=== PATIENT | female | born 1980 | race Caucasian/White ===

== ENCOUNTER 2017-12-13 23:15 | Emergency (ER) | payer OTHER, SELFPAY ==
[2017-12-13 23:18] VITALS: BP 132/71; PULSE 90; RESP 16; TEMP 36.5; O2SAT 100; BMI 36.8
--- NOTE | 2017-12-14 00:38 | DI.RAD.S_ITS ---
PROCEDURE: XR WRIST RT 2V INDICATIONS: cat bite TECHNIQUE: 2 views of the wrist were acquired. COMPARISON: None. FINDINGS: Bones: No fractures or dislocations. No suspicious bony lesions. Scaphoid view: Not requested Soft tissues: No suspicious soft tissue calcifications. A cluster of air lucencies is present in the soft tissues over the dorsal and lateral aspect of the carpus, compatible with penetrating lesions or air forming infection IMPRESSION: 1. Negative for fracture. 2. Radiolucencies over the dorsolateral aspect of the soft tissues compatible with penetrating lesions, possibility of air forming bacterial infection not excluded. Dictated by: Christ Doran M.D. on 12/14/2017 at 8:10 Approved by: Christ Doran M.D. on 12/14/2017 at 8:12
--- NOTE | 2017-12-14 00:41 | ED_ITS ---
HPI - Wound/Laceration General Chief Complaint: Wound/Laceration Stated Complaint: right wrist cat scratch Time Seen by Provider: 12/14/17 00:28 Source: patient Mode of arrival: ambulatory Limitations: no limitations History of Present Illness HPI narrative: Patient is a 37-year-old female who presents after a cat bite to her right wrist. It is a domesticated cat but a work CT. She thinks it has had all of its shots. He did wash it out with soap and water has. However she has significant swelling 10 cm of her right arm. No fever. The bite happened at about 2:00 p.m. this afternoon. Onset (ago): hour(s) Related Data Home Medications Medication Instructions Recorded Confirmed FLUTICASONE 50MCG JODEE INH- 1 spray INTRANASAL Q DAY #0 03/30/10 (FLUTICASONE PROPIONATE) [PROAIR] 1 - 2 puff BUC PRN #0 03/30/10 mometasone-formoterol [Dulera] 1 sneha INH BID #0 02/01/13 valacyclovir 500 mg PO Q DAY #0 02/01/13 magnesium oxide 1,200 mg #0 08/22/16 calcium carbonate 600 mg NG #0 02/18/17 Previous Rx's Medication Instructions Recorded amoxicillin-pot clavulanate 1 tab PO BID #14 tab 12/14/17 [Augmentin] Allergies Allergy/AdvReac Type Severity Reaction Status Date / Time FOOD PLANTS DOGS CATS Allergy Severe Uncoded 08/12/17 12:15 Review of Systems Review of Systems GENERAL: Denies chills, fatigue, malaise, fever, sweats, travel HEENT: Denies sinus pain, ear pain, sore throat, difficulty swallowing, neck pain RESPIRATORY: Denies dyspnea, cough, wheezing, hemoptysis, sputum. CARDIOVASCULAR: Denies chest pain, palpitations, orthopnea, edema GASTROINTESTINAL: Denies nausea, vomiting, abdominal pain, diarrhea, constipation, melena. : Denies dysuria, frequency, incontinence, hematuria, urinary retention, flank pain. MUSCULOSKELETAL: Denies weakness, joint pain, or bony pain SKIN: See HPI NEUROLOGIC: Denies weakness, dizziness, headache, numbness, change in speech, confusion PSYCHIATRIC: No concerning psychosocial issues. 12 point review of systems is negative except for those stated above and HPI PFSH Medical History Healthy adult (Acute) Surgical History Status post appendectomy Status post tonsillectomy and adenoidectomy Social History Smoking Status: Current every day smoker Exam Initial Vital Signs Initial Vital Signs: Vital Signs Temperature 97.7 F 12/13/17 23:18 Pulse Rate 90 12/13/17 23:18 Respiratory Rate 16 12/13/17 23:18 Blood Pressure 132/71 H 12/13/17 23:18 Pulse Oximetry 100 12/13/17 23:18 GENERAL: Well-appearing, well-nourished and in no acute distress. HEENT: Head atraumatic,EOMI, pupils reactive, neck is supple CARDIOVASCULAR: Regular rate and rhythm without murmurs, rubs or gallops. RESPIRATORY: Breath sounds equal bilaterally, no wheezes rales or rhonchi. ABDOMEN: Soft, nontender. Normoactive bowel sounds all 4 quadrants. No guarding or rebound. EXTREMITIES: Normal range of motion, no clubbing or edema. Neurovascularly intact -right hand of: No swelling into the finger tips able to flex and extend all fingers including the thumb. NEUROLOGICAL: Alert and oriented x4.Normal gait and speech. Cranial nerves II through XII grossly intact. SKIN: Right wrist of puncture wounds on the radial dry aid spreading 10 cm proximal width 8cm. Skin Full Arm Back Right: 2 1. Swelling and erythema 10 cm x 8 cm puncture null noted radial side Course Orders Ordered: ED Orders 12/14/17 00:38 XR wrist RT 2V Stat 12/14/17 01:35 Blood Culture Stat Complete Blood Count AUTO DIFF Stat Comprehensive Metabolic Panel Stat Lactate (Lactic Acid) Stat Discontinued Medications Diphtheria/Tetanus/Acell Pertussis (Adacel) 0.5 ml IM .ONCE ONE Stop: 12/14/17 00:38 Last Admin: 12/14/17 03:00 Dose: 0.5 ml Ampicillin Sodium/Sulbactam (Sodium 3 gm/ Sodium Chloride) 100 mls @ 100 mls/ hr IV NOW ONE Stop: 12/14/17 00:38 Last Infusion: 12/14/17 04:11 Dose: 0 mls/hr Admin: 12/14/17 02:53 Dose: 100 mls/hr Ketorolac Tromethamine (Toradol) 30 mg IV NOW ONE Stop: 12/14/17 03:07 Last Admin: 12/14/17 03:08 Dose: 30 mg Vital Signs - 8 hr 12/13/17 23:18 12/14/17 04:23 Temperature 97.7 F 98.5 F Pulse Rate 90 73 Respiratory Rate 16 14 Blood Pressure 132/71 H 125/68 H Pulse Oximetry 100 99 MDM - Wound/Laceration Lab Data Result diagrams: 12/14/17 01:35 12/14/17 01:35 Lab Results 12/14/17 12/14/17 12/14/17 Range/Units 01:35 01:35 01:35 WBC 15.6 H (4.5-11.0) X10^3/uL RBC 4.17 (4.0-5.2) X10^6/uL Hgb 13.6 (12.0-16.0) g/dL Hct 39.6 (36-46) % MCV 94.9 (80-100) fL MCH 32.6 (26-34) PG MCHC 34.3 (30-36) % RDW 12.8 (11.6-14.8) % Plt Count 255 (150-400) X10^3/uL Neut % (Auto) 67.7 (50-75) % Lymph % (Auto) 23.2 L (25-40) % Chambers % (Auto) 5.4 (3-14) % Eos % (Auto) 3.1 (2-4) % Baso % (Auto) 0.6 (0-2) % Neut # (Auto) 62248 H (5444-0836) /uL Sodium 138 (137-145) mmol/L Potassium 3.9 (3.4-5.1) mmol/L Chloride 104 (98-107) mmol/L Carbon Dioxide 27 (22-32) mmol/L BUN 20 H (7-17) mg/dL Creatinine 0.70 (0.52-1.04) mg/dL Estimated GFR > 60.0 (>60) mL/min BUN/Creatinine Ratio 28.6 H (6-22) Glucose 103 H (70-100) mg/dL Lactate 0.7 (0.7-2.1) mmol/L Calcium 9.1 (8.4-10.2) mg/dL Total Bilirubin 0.3 (0.2-1.3) mg/dL AST 26 (14-36) IU/L ALT 28 (9-52) IU/L Alkaline Phosphatase 55 (38-126) U/L Total Protein 6.0 L (6.3-8.2) g/dL Albumin 3.8 (3.5-5.0) g/dL Globulin 2.2 (1.7-4.1) g/dL Albumin/Globulin Ratio 1.7 (1.0-2.8) Imaging Data right wrist x ray: Attestation: I personally reviewed and interpreted this imaging study as follows: My impression: No foreign body and no fracture MDM Narrative Medical decision making narrative: The patient does have quite significant swelling immediately but no streaking up her arm. At this point she will need close follow-up. I recommend 1st her primary care provider but if unable to get seen at today I do recommend she return to the ED for another evaluation possible admission with IV antibiotics. The redness has actually improved quite a bit after 1 dose of Unasyn. Discharge Plan Departure Patient Disposition: Home, Self-Care Clinical Impression: Cat bite Discharge Date/Time: 12/14/17 04:20 Interventions: ED Discharge Assessment Last Done: 12/14/17 04:23 Instructions: DI for Cat Bite Activity Restrictions/Additional Instructions: *You have been diagnosed with cat bite *What to do: You must be seen evaluated by a doctor tomorrow, if you cannot get into her primary physician please return to the emergency department for re- evaluation you may require admission if no significant improvement *Continue to take medications as directed -Augmentin twice a day for 7 days start tomorrow morning *Follow up with your primary care provider in 2-3 days *Return to ER if you should have fever, increasing redness, inability to move fingers or any new, worsening or concerning symptoms Prescriptions: New amoxicillin-pot clavulanate [Augmentin] 875-125 mg tablet 1 tab PO BID Qty: 14 RF: 0 No Action [PROAIR] 1 - 2 puff BUC PRN Qty: 0 RF: 0 FLUTICASONE 50MCG JODEE INH- (FLUTICASONE PROPIONATE) 1 spray Intranasal Q DAY Qty: 0 RF: 0 valacyclovir 500 MG tablet 500 mg PO Q DAY Qty: 0 RF: 0 mometasone-formoterol [Dulera] 100 MCG/5 MCG HFA aerosol inhaler 1 sneha INH BID Qty: 0 RF: 0 magnesium oxide 400 MG capsule 1,200 mg Qty: 0 RF: 0 calcium carbonate 600 MG tablet 600 mg NG Qty: 0 RF: 0
--- NOTE | 2017-12-14 01:39 | PC.NURSE ---
cat bite to right wrist/forearm. several teeth puncture null and swelling/redness present. pt was [place] and the cat bit her. pt reports some numbness and tingling in 1st 2nd and 3rd fingers. puncture null non draining. pt reports making it bleed for a while after incident and when washing bite.
[2017-12-14 01:52] LABS: Add Manual Diff / Slide Review NO; Basophils Percent Auto 0.6 % (0-2); Eosinophils Percent Auto 3.1 % (2-4); Hematocrit 39.6 % (36-46); Hemoglobin 13.6 g/dL (12.0-16.0); Lymphocytes Percent Auto 23.2 % (25-40); Mean Corpuscular HGB Conc 34.3 % (30-36); Mean Corpuscular Hemoglobin 32.6 PG (26-34); Mean Corpuscular Volume 94.9 fL (80-100); Monocytes Percent Auto 5.4 % (3-14); Neutrophils Absolute Auto 10500 /uL (3000-5900); Neutrophils Percent Auto 67.7 % (50-75); Platelet Count 255 X10^3/uL (150-400); Red Blood Cell Count 4.17 X10^6/uL (4.0-5.2); Red Cell Distribution Width 12.8 % (11.6-14.8); White Blood Cell Count 15.6 X10^3/uL (4.5-11.0)
[2017-12-14 02:03] LABS: Alanine Aminotransferase 28 IU/L (9-52); Albumin 3.8 g/dL (3.5-5.0); Albumin Globulin Ratio 1.7 (1.0-2.8); Alkaline Phosphatase 55 U/L (38-126); Aspartate Aminotransferase 26 IU/L (14-36); BUN Creatinine Ratio 28.6 (6-22); Bilirubin Total 0.3 mg/dL (0.2-1.3); Blood Urea Nitrogen 20 mg/dL (7-17); Calcium 9.1 mg/dL (8.4-10.2); Carbon Dioxide 27 mmol/L (22-32); Chloride 104 mmol/L (98-107); Estimated Glomerular Filt Rate > 60.0 mL/min (>60); Globulin 2.2 g/dL (1.7-4.1); Glucose 103 mg/dL (70-100); HEMOLYSIS < 15 (0-50); Potassium 3.9 mmol/L (3.4-5.1); Sodium 138 mmol/L (137-145)
[2017-12-14 02:04] LABS: Lactate (Lactic Acid) 0.7 mmol/L (0.7-2.1)
[2017-12-14] MEDS: AMPICILLIN/SULBACTAM 3 GM 3 GM in SODIUM CHLORIDE 0.9% 100 ML IV (02:53)
[2017-12-14] MEDS: TET,DIPH,PERTUSS(ACELL),VAC/PF 0.5 ML SYRINGE IM (03:00)
[2017-12-14] MEDS: KETOROLAC 60 MG/2 ML VIAL 30 MG IV (03:08)
[2017-12-14 04:23] VITALS: BP 125/68; PULSE 73; RESP 14; TEMP 36.9; O2SAT 99
== END 2017-12-14 04:20 | disposition home or self-care (01) ==
PROVIDERS: Emergency Provider Emergency Medicine
DX: S61.551A Open bite of right wrist, initial encounter (principal); W55.01XA Bitten by cat, initial encounter
CPT/HCPCS: 36415; 73100; 80053; 83605; 85025; 87040; 90471; 96365; 96375; 99283; 99284; 90715; J0295; J1885

== ENCOUNTER → 2019-01-13 14:45 | Outpatient (CLI) | payer OTHER, SELFPAY ==
--- NOTE | 2019-01-13 | DI.US.S_ITS ---
LIMITED ULTRASOUND OF RIGHT BREAST: 01/13/2019 CLINICAL: Palpable right breast lump. [facility] and real-time ultrasound of the right breast upper outer quadrant were performed. Ramos scale images of the real-time examination were reviewed. There are two oval cysts in the right breast at 10 o'clock anterior depth 3 cm from the nipple. The larger measures 0.7 cm x 0.5 cm x 0.6 cm and is simple. A 0.5 mm cyst contains low level homogeneous echos. Color flow imaging demonstrates that there is no vascularity present. This correlates as palpated. No other solid or shadowing abnormalities. IMPRESSION: PROBABLY BENIGN The two oval cysts in the right breast correspond to the palplable abnormality and are probably benign. A follow-up ultrasound in 6 months is recommended. Findings and recommendations were conveyed to the patient at time of exam. This exam was interpreted at Station ID: [id number]. Electronically Signed By: Deb lovell/:01/13/2019 17:04:10 letter sent: Followup Recommended Ultrasound BI-RADS: 3 Probably benign
--- NOTE | 2019-01-13 | DI.MG.S_ITS ---
BILATERAL DIGITAL DIAGNOSTIC MAMMOGRAM 3D/2D: 01/13/2019 CLINICAL: Right breast mass. Baseline. Family history of breast cancer. No prior exams were available for comparison. The tissue of both breasts is extremely dense, which lowers the sensitivity of mammography. No significant masses, calcifications, or other findings are seen in either breast. Specifically, no finding to correspond to the patient's 10:000 right breast palpable abnormality. IMPRESSION: INCOMPLETE: NEEDS ADDITIONAL IMAGING EVALUATION There is no mammographic correlate to the patient's palpable abnormality. Ultrasound is recommended for further evaluation. This was performed immediately following this exam. This exam was interpreted at Station ID: [id number]. NOTE: For mammograms, a report in lay terms will be sent to the patient. Approximately 15% of breast malignancies will not be visualized mammographically. In the management of a palpable breast mass, a negative mammogram must not discourage biopsy of a clinically suspicious lesion. Electronically Signed By: Deb lovell/:01/13/2019 17:00:14 ACR BI-RADS Category 0: Incomplete [id number]
== END ==
PROVIDERS: Visit Provider Naturopath
DX: R92.8 Other abnormal and inconclusive findings on diagnostic imaging of breast (principal); N60.01 Solitary cyst of right breast; Z80.3 Family history of malignant neoplasm of breast
CPT/HCPCS: 76642; 77066; G0279

== ENCOUNTER → 2019-07-13 15:11 | Outpatient (CLI) | payer OTHER, SELFPAY ==
--- NOTE | 2019-07-13 | DI.US.S_ITS ---
ULTRASOUND OF RIGHT BREAST: 07/13/2019 CLINICAL: 6 month follow-up of cysts. Comparison is made to exams [facility] of the right breast was performed. Ramos scale images of the real-time examination were reviewed. The previously described 0.7 cm x 0.5 cm x 0.6 cm cluster of oval cysts in the right breast at 10 o'clock anterior depth 3 cm from the nipple which correlated with the palpable area of concern are no longer seen. No significant abnormalities were seen sonographically in the right breast. IMPRESSION: BENIGN Previously seen complicated cysts have resolved which is consistent with a benign process. There is no sonographic evidence of malignancy. Recommend initiating screening mammography at age 40. Recommend clinical followup for continued symptoms or development of any clinically suspicious findings. This exam was interpreted at Station ID: [id number]. Electronically Signed By: Reynold Calderon M.D. at/:07/13/2019 15:52:58 letter sent: Normal Exam Ultrasound BI-RADS: 2 Benign
== END ==
PROVIDERS: Referring Provider Naturopath; Visit Provider Naturopath
DX: R92.8 Other abnormal and inconclusive findings on diagnostic imaging of breast (principal)
CPT/HCPCS: 76642

== ENCOUNTER → 2019-10-22 09:50 | Outpatient (CLI) | payer OTHER, SELFPAY ==
[2019-10-22 10:38] LABS: Add Manual Diff / Slide Review NO; Basophils Absolute Auto 100 /uL (0-100); Eosinophils Absolute Auto 500 /uL (0-450); Eosinophils Percent Auto 6.1 % (2-4); Hematocrit 42.9 % (36-46); Lymphocytes Absolute Auto 3100 /uL (1100-4500); Lymphocytes Percent Auto 41.3 % (25-40); Mean Corpuscular HGB Conc 35.1 % (30-36); Mean Corpuscular Hemoglobin 33.5 PG (26-34); Mean Corpuscular Volume 95.4 fL (80-100); Monocytes Absolute Auto 500 /uL (0-900); Monocytes Percent Auto 6.3 % (3-14); Neutrophils Absolute Auto 3400 /uL (1500-7000); Neutrophils Percent Auto 45.3 % (50-75); Platelet Count 276 X10^3/uL (150-400); Red Blood Cell Count 4.49 X10^6/uL (4.0-5.2); Red Cell Distribution Width 12.5 % (11.6-14.8); White Blood Cell Count 7.5 X10^3/uL (4.5-11.0)
[2019-10-22 11:13] LABS: Erythrocyte Sedimentation Rate 1 MM/HR (0-20)
[2019-10-22 11:36] LABS: Alanine Aminotransferase 16 IU/L (<35); Albumin 4.2 g/dL (3.5-5.0); Albumin Globulin Ratio 1.8 (1.0-2.8); Alkaline Phosphatase 57 U/L (38-126); Aspartate Aminotransferase 23 IU/L (14-36); BUN Creatinine Ratio 17.1 (6-22); Bilirubin Total 0.8 mg/dL (0.2-1.3); Blood Urea Nitrogen 12 mg/dL (7-17); Calcium 9.6 mg/dL (8.4-10.2); Carbon Dioxide 29 mmol/L (22-32); Chloride 106 mmol/L (98-107); Estimated Glomerular Filt Rate > 60.0 mL/min (>60); Globulin 2.4 g/dL (1.7-4.1); Glucose 89 mg/dL (70-100); HEMOLYSIS < 15 (0-50); Potassium 4.4 mmol/L (3.4-5.1); Sodium 138 mmol/L (137-145); Total Protein 6.6 g/dL (6.3-8.2); Uric Acid 4.2 mg/dL (2.5-6.2)
[2019-10-22 11:41] LABS: C-Reactive Protein Quant < 0.5 mg/dL (<1.0); Rheumatoid Factor < 8.6 IU/mL (<12.0)
[2019-10-26 07:04] LABS: CCP Antibodies IgG/IgA 4 units (0-19)
[2019-10-26 17:08] LABS: ANA Screen, IFA Positive (.)
== END ==
PROVIDERS: Referring Provider Naturopath; Visit Provider Naturopath
DX: M79.645 Pain in left finger(s) (principal)
CPT/HCPCS: 36415; 80053; 84550; 85025; 85651; 86038; 86140; 86200; 86430

== ENCOUNTER → 2022-12-30 09:04 | Outpatient (CLI) | payer OTHER, SELFPAY ==
[2022-12-30 11:09] LABS: Add Manual Diff / Slide Review NO; Basophils Absolute Auto 100 /uL (0-100); Basophils Percent Auto 0.7 % (0-2); Eosinophils Absolute Auto 100 /uL (0-450); Eosinophils Percent Auto 1.7 % (2-4); Hematocrit 41.1 % (36-46); Hemoglobin 14.2 g/dL (12.0-16.0); Lymphocytes Absolute Auto 2300 /uL (1100-4500); Lymphocytes Percent Auto 30.4 % (25-40); Mean Corpuscular HGB Conc 34.5 % (30-36); Mean Corpuscular Hemoglobin 32.9 PG (26-34); Mean Corpuscular Volume 95.2 fL (80-100); Monocytes Absolute Auto 400 /uL (0-900); Monocytes Percent Auto 5.7 % (3-14); Neutrophils Absolute Auto 4700 /uL (1500-7000); Neutrophils Percent Auto 61.5 % (50-75); Platelet Count 253 X10^3/uL (150-400); Red Blood Cell Count 4.31 X10^6/uL (4.0-5.2); Red Cell Distribution Width 12.6 % (11.6-14.8); White Blood Cell Count 7.7 X10^3/uL (4.5-11.0)
[2022-12-30 11:28] LABS: HEMOLYSIS < 15 (0-50); Iron 92 ug/dL (37-170)
[2022-12-30 11:30] LABS: Alanine Aminotransferase 22 IU/L (<35); Albumin 4.4 g/dL (3.5-5.0); Albumin Globulin Ratio 1.8 (1.0-2.8); Alkaline Phosphatase 50 U/L (38-126); Aspartate Aminotransferase 28 IU/L (14-36); BUN Creatinine Ratio 15.2 (6-22); Bilirubin Total 0.9 mg/dL (0.2-1.3); Blood Urea Nitrogen 10 mg/dL (7-17); Calcium 9.2 mg/dL (8.4-10.2); Carbon Dioxide 26 mmol/L (22-32); Chloride 104 mmol/L (98-107); Cholesterol 143 mg/dL (140-199); Estimated Glomerular Filt Rate > 60 mL/min (>60); Globulin 2.4 g/dL (1.7-4.1); Glucose 92 mg/dL (70-100); HDL Cholesterol 75 mg/dL (40-60); HEMOLYSIS < 15 (0-50); LDL Cholesterol Calculated 61 mg/dL (<100); Potassium 4.2 mmol/L (3.4-5.1); Sodium 137 mmol/L (137-145); Total Protein 6.8 g/dL (6.3-8.2); Triglycerides 34 mg/dL (35-150)
[2022-12-30 11:41] LABS: Percent Iron Saturation 25 % (15-50); Total Iron Binding Capacity 367 ug/dL (265-497); Transferrin 273 mg/dL (206-381)
[2022-12-30 12:02] LABS: Estradiol, Total 92.9 pg/mL
[2022-12-30 12:03] LABS: Thyroid Stimulating Hormone 0.913 uIU/mL (0.47-4.68)
[2022-12-30 12:05] LABS: Ferritin 40 ng/mL (6-137); Testosterone 38.5 ng/dL (5.71-77.0)
[2022-12-30 12:36] LABS: Folate 14.8 ng/mL (2.76-20.0); Vitamin B12 233 pg/mL (239-931)
== END ==
PROVIDERS: PCP Naturopath; Referring Provider Naturopath; Visit Provider Naturopath
DX: D64.9 Anemia, unspecified (principal); N92.6 Irregular menstruation, unspecified; Z82.49 Family history of ischemic heart disease and other diseases of the circulatory system; L68.0 Hirsutism; Z00.00 Encounter for general adult medical examination without abnormal findings
CPT/HCPCS: 36415; 80053; 80061; 82607; 82627; 82670; 82728; 82746; 83540; 83550; 84144; 84403; 84443; 85025

== ENCOUNTER → 2023-01-14 06:57 | Outpatient (CLI) | payer OTHER, SELFPAY ==
--- NOTE | 2023-01-14 | DI.US.S_ITS ---
PROCEDURE: US PELVIC COMPLETE INDICATIONS: DYSMENORRHEA/MENORRHAGIA TECHNIQUE: Real-time scanning was performed of the pelvic organs, with image documentation. Additional endovaginal scanning was necessary due to incomplete visualization of the adnexal and endometrial structures by transabdominal scanning. COMPARISON: None. FINDINGS: Uterus: Uterus is anteverted and normal in size at 8.3 x 3.4 x 4.9 cm. The myometrium is homogeneous. The endometrium measures 7.6 mm combined thickness. Ovaries: The right ovary measures 2.1 x 4.4 x 2.0 cm, with a calculated ovarian volume of 9.8 cc. The left ovary measures 3.1 x 2.5 x 2.9 cm, with a calculated ovarian volume of 11.7 cc. A dominant follicle measures 1.7 x 1.4 x 1.4 cm. A dominant follicle measures 1.7 x 1.4 x 1.5 cm. The ovaries have a normal sonographic appearance. Less than 12 follicles can be seen in each ovary. No adnexal masses are seen. Other: No pathologic free abdominal or pelvic fluid. IMPRESSION: No acute abnormality of the pelvis. We strive to produce accurate, complete, and clear reports of imaging services. To assist us in improving patient care, this report was composed using standard report templates and voice recognition software. Therefore, it may contain abnormal punctuation, insertions and/or omissions. Occasional wrong-word or sound-alike substitutions may occur. Though we review the report and make efforts to correct it, we do recommend that the report be read carefully in proper context to recognize any text inaccuracies. Dictated by: Ibrahima Cooper M.D. on 01/14/2023 at 9:07 Approved by: Ibrahima Cooper M.D. on 01/14/2023 at 9:10
== END ==
PROVIDERS: PCP Naturopath; Referring Provider Naturopath; Visit Provider Naturopath
DX: N94.6 Dysmenorrhea, unspecified (principal); N92.0 Excessive and frequent menstruation with regular cycle
CPT/HCPCS: 76830; 76856

== ENCOUNTER → 2023-07-24 13:29 | Outpatient (CLI) | payer OTHER, SELFPAY ==
--- NOTE | 2023-07-24 | DI.US.S_ITS ---
ULTRASOUND OF RIGHT BREAST: 07/24/2023 CLINICAL: Palpable right axilla lumps. Resolved. Comparison is made to exams dated: 07/24/2023 mammogram and 01/13/2019 mammogram - [facility]. Ultrasound of the right breast was performed on the area of interest. Ramos scale images of the real-time examination were reviewed. The right axilla was interogated and normal appearing lymph nodes are visualized. IMPRESSION: BENIGN No right axillary adenopathy. There is no sonographic evidence of malignancy. There are no mammographic or sonographic abnormalities seen in the right axilla to correspond with the now-resolved palpable nodularities in the right axilla, however, clinical followup is recommended. A 1 year screening mammogram is recommended. This exam was interpreted at Station ID: [id number]. Electronically Signed By: Elena Ramírez M.D. lk/:07/24/2023 15:00:41 letter sent: Normal Exam Ultrasound BI-RADS: 2 Benign
--- NOTE | 2023-07-24 13:31 | DI.MG.S_ITS ---
BILATERAL DIGITAL DIAGNOSTIC MAMMOGRAM 3D/2D: 07/24/2023 CLINICAL: Bilateral breast lumps. Comparison is made to exam dated: 01/13/2019 [facility]. Both breasts are extremely dense, which lowers the sensitivity of mammography (category d />75% glandular tissue). There is are layering milk of calcium calcifications in the right breast at 12 o'clock. No significant masses, calcifications, or other findings are seen in either breast. IMPRESSION: INCOMPLETE: NEEDS ADDITIONAL IMAGING EVALUATION There is no mammographic abnormality seen in the left breast to correspond with the area of clinical concern in the sub-areolar depth, however, ultrasound is recommended. There are no mammographic abnormalities seen in either axilla to correspond with the now-resolved palpable nodularities in axillae, however, ultrasound is recommended. A targeted ultrasound of the bilateral breasts is recommended and will be performed immediately following this exam. Based on Tyrer-Cuzick model (a risk assessment model), the patient's lifetime risk is 20.3% and her 10 year risk is 2.9%. If a patient has an elevated risk, a more comprehensive evaluation should be considered and/or a referral to a genetic counselor. The [employer], [employer], and NCCN Guidelines advise the consideration of Breast MRI as an adjunct to screening mammography in patients whose Lifetime risk to develop breast cancer is 20% or higher. This exam was interpreted at Station ID: [id number]. NOTE: For mammograms, a report in lay terms will be sent to the patient. Approximately 15% of breast malignancies will not be visualized mammographically. In the management of a palpable breast mass, a negative mammogram must not discourage biopsy of a clinically suspicious lesion. Electronically Signed By: Elena Ramírez M.D. lk/:07/24/2023 14:36:17 ACR BI-RADS Category 0: Incomplete 3340F
--- NOTE | 2023-07-24 13:32 | DI.US.S_ITS ---
LIMITED ULTRASOUND OF LEFT BREAST AND AXILLA: 07/24/2023 CLINICAL: Palpable left breast lump. Resolved. Comparison is made to exams dated: 07/24/2023 mammogram and 01/13/2019 mammogram - [facility]. Color flow ultrasound of the left breast axilla was performed on the areas of interest. Ramos scale images of the real-time examination were reviewed. There is mild duct ectasia in the left breast at 6 o'clock in the retroareolar region. This duct ectasia displays posterior acoustic enhancement. This lmay correlate as palpated. The left axilla was interogated and normal appearing lymph nodes are visualized. IMPRESSION: BENIGN No left axillary adenopathy. There is no sonographic evidence of malignancy. The duct ectasia in the left breast is benign. There are no mammographic or sonographic abnormalities seen in the left axilla to correspond with the now-resolved palpable nodularities in the left axilla, however, clinical followup is recommended. Return to annual mammogram screening schedule is recommended. This exam was interpreted at Station ID: [id number]. Electronically Signed By: Elena martinez/:07/24/2023 15:01:58 letter sent: Clinical Evaluation Ultrasound BI-RADS: 2 Benign
== END ==
PROVIDERS: PCP Naturopath; Referring Provider Naturopath; Visit Provider Naturopath
DX: R92.2 Inconclusive mammogram (principal); N60.42 Mammary duct ectasia of left breast; N63.11 Unspecified lump in the right breast, upper outer quadrant; N63.25 Unspecified lump in the left breast, overlapping quadrants; R92.343 Mammographic extreme density, bilateral breasts
CPT/HCPCS: 76642; 76882; 77066; G0279

== ENCOUNTER → 2024-02-25 15:43 | Outpatient (CLI) | payer OTHER, SELFPAY ==
--- NOTE | 2024-02-25 15:45 | DI.MRI.S_ITS ---
BREAST MRI OF BOTH BREASTS: 02/25/2024 CLINICAL: High risk screening. TECHNIQUE: The patient was placed prone in a dedicated breast imaging coil. Precontrast axial STIR and 3D FLASH without fat saturation sequences were obtained. Both before and after bolus injection of contrast, sequential 1-minute axial 3D FLASH with fat saturation sequences for 3 time points, with subtraction images and maximum intensity projections (MIP's) generated. Delayed sagittal FLASH images with fat saturation were also obtained. Computer-aided detection, including computer algorithm analysis of MRI image data for lesion detection and characterization, pharmacokinetic analysis, with further physician review for interpretation, was performed. COMPARISON: [facility], , MM DIAGNOSTIC MAMMO BI, 07/24/2023, 13:59. [facility], US, US BREAST LT LIMITED, 07/24/2023, 14:42. FINDINGS: Image quality: Diagnostic. There is marked background parenchymal enhancement. There is extremely dense fibroglandular tissue in the bilateral breast. Right breast: No suspicious mass, non-mass enhancement, or architectural distortion. No skin or nipple abnormalities. No axillary or internal mammary chain adenopathy. Multiple scattered variably sized right breast cysts are noted. Left breast: No suspicious mass, non-mass enhancement, or architectural distortion. No skin or nipple abnormalities. No axillary or internal mammary chain adenopathy. Multiple scattered variably sized left breast cysts are noted. Miscellaneous: Visualized portions of the upper abdomen and chest appear unremarkable. IMPRESSION: BENIGN Right breast without MRI evidence for malignancy. Left breast without MRI evidence for malignancy. Recommend continued annual screening mammography and consideration for continued adjunct screening breast MRI. COMMENT: The imaging literature indicates that a negative contrast breast MRI examination has a high sensitivity and a moderate specificity for detecting and excluding invasive carcinomas to a detection threshold of 3-5 mm; nonetheless, appropriate clinical and mammographic follow-up are recommended. MRI is not sensitive for detecting DCIS (ductal carcinoma in situ) and may not detect large invasive neoplasms that show only minimal enhancement such as mucinous carcinoma. If there are suspicious calcifications or clinically worrisome palpable masses, then biopsy should still be considered. Invasive neoplasms can be hidden by co-existent and benign enhancement caused by mastitis, hormone therapy effects, radiation therapy, , and recent biopsy or surgery. False positive examinations can occur in a number of circumstances, including breasts that have recently been subject to invasive procedures and those that contain atypical ductal hyperplasia, hormonally stimulated glandular tissue, fat necrosis, or radial scars. Future imaging is recommended as follows: 07/24/2024 screening mammogram, 07/24/2024 screening mammogram. This exam was interpreted at Station ID: [id number]. Electronically Signed By: Reynold Calderon M.D. aty/:02/26/2024 22:22:26 ACR BI-RADS Category 2: Benign
== END ==
LOC: MRI 15:44
PROVIDERS: PCP Naturopath; Referring Provider Naturopath; Visit Provider Naturopath
DX: N60.01 Solitary cyst of right breast (principal); Z12.39 Encounter for other screening for malignant neoplasm of breast; N60.02 Solitary cyst of left breast; R92.343 Mammographic extreme density, bilateral breasts; Z80.3 Family history of malignant neoplasm of breast
CPT/HCPCS: 77049; A9579

== ENCOUNTER → 2024-08-05 | Outpatient (CLI) | payer OTHER, SELFPAY ==
--- NOTE | 2024-08-05 17:21 | DI.MG.S_ITS ---
MM screening mammo BI: 08/05/2024. BI-RADS: 2 CLINICAL: 44-year old female for bilateral screening mammogram. Tyrer-Cuzick lifetime risk of 24.4%. No personal or first-degree family history of breast cancer. Current reported family history of breast cancer: maternal grandmother. PRIOR EXAMS 02/25/2024, 07/24/2023, 07/13/2019, 01/13/2019. MAMMOGRAPHY TECHNIQUE: 2D and 3D (tomosynthesis) digital mammographic views obtained, with additional images as needed for full coverage. Current study was also evaluated with a Computer Aided Detection (CAD) system. DENSITY D. The breasts are extremely dense, which lowers the sensitivity of mammography. MAMMOGRAPHY FINDINGS Bilateral: Benign-appearing calcifications noted. There are no suspicious masses, calcifications, or other findings in the breast. No significant change from comparison. IMPRESSION: * No evidence of malignancy with benign findings. RECOMMENDATIONS Bilateral * According to the Tyrer-Cuzick Risk Assessment Model, based on the information provided your patient has a greater than 20% lifetime risk for developing breast cancer. Consider supplemental screening with breast MRI and participation in a high risk screening program. * Annual screening mammography. OVERALL ASSESSMENT CATEGORY BI-RADS-2: Benign. The [employer] recommends annual screening mammography beginning at age 40 for women with average risk of breast cancer. ELECTRONICALLY SIGNED: Sanjuanita Vigil M.D. on 08/08/2024 at 12:19:37 PM PT Interpreting Station ID: [id number]
== END ==
PROVIDERS: PCP Naturopath; Referring Provider Naturopath; Visit Provider Naturopath
DX: Z12.31 Encounter for screening mammogram for malignant neoplasm of breast (principal); Z80.3 Family history of malignant neoplasm of breast; R92.343 Mammographic extreme density, bilateral breasts
CPT/HCPCS: 77063; 77067

== ENCOUNTER → 2025-04-19 16:32 | Outpatient (CLI) | payer OTHER, SELFPAY ==
--- NOTE | 2025-04-19 16:32 | DI.MRI.S_ITS ---
MR breast BI wo/w con: 04/19/2025. BI-RADS: 2 CLINICAL: 44-year old female for bilateral diagnostic breast MRI. No personal or first-degree family history of breast cancer. Current reported family history of breast cancer: maternal grandmother. PRIOR EXAMS: MG 08/05/2024, 07/24/2023, 01/13/2019. MR 02/25/2024. US 07/24/2023. MRI TECHNIQUE: Bilateral breast MRI was performed on a 1.5 Celia magnet using a dedicated breast coil with mild compression. Axial T1 and T2 STIR sequences were obtained. Dynamic contrast enhanced VIBRANT fat-suppressed sequences were obtained. Delayed sagittal high resolution or sagittal reconstructed isotropic sequence was also obtained. Subtraction images and maximum intensity projection images were obtained. The study was evaluated using [employer] software. IV Contrast: 20 ml ProHance. FIBROGLANDULAR TISSUE Bilateral: D. Extreme fibroglandular tissue. BACKGROUND PARENCHYMAL ENHANCEMENT Bilateral: Marked symmetrical background parenchymal enhancement. BREAST FINDINGS Bilateral: Benign-appearing cysts and axillary lymph nodes noted. There is no suspicious finding with benign findings noted. IMPRESSION: * No evidence of malignancy with benign findings. RECOMMENDATIONS Bilateral * According to the Tyrer-Cuzick Risk Assessment Model, based on the information provided your patient has a greater than 20% lifetime risk for developing breast cancer. Consider supplemental screening with breast MRI and participation in a high risk screening program. * Annual screening mammography. OVERALL ASSESSMENT CATEGORY BI-RADS-2: Benign. ELECTRONICALLY SIGNED: Nicholas Yee M.D. on 05/02/2025 at 09:56:17 AM PT Interpreting Station ID: [id number]
== END ==
PROVIDERS: PCP Naturopath; Referring Provider Naturopath; Visit Provider Naturopath
DX: Z12.39 Encounter for other screening for malignant neoplasm of breast (principal); N60.01 Solitary cyst of right breast; N60.02 Solitary cyst of left breast; Z80.3 Family history of malignant neoplasm of breast
CPT/HCPCS: 77049; A9579